=== PATIENT | male | born 1970 | race Caucasian/White ===

== ENCOUNTER 2021-09-26 05:39 | Outpatient (CLI) | payer OTHER ==
[~2021-09-26] VITALS: Ht 177.8 cm; Wt 80.7 kg
[2021-09-26] MEDS ORDERED: OMEP40CA6 PO (13:48)
[2021-10-03] MEDS ORDERED: PANT40TA2 PO (14:27)
[2021-10-03] MEDS ORDERED: SUCR1TAB36 PO (14:27)
[2021-10-03] MEDS ORDERED: HYDR25SU28 RC (15:13)
== END 2021-09-26 15:45 ==
LOC: PREOP 05:39
PROVIDERS: ATTEND Surgery
DX: Z01.818 Encounter for other preprocedural examination (principal); Z12.11 Encounter for screening for malignant neoplasm of colon; R13.10 Dysphagia, unspecified

== ENCOUNTER 2021-10-03 11:30 | Day surgery (SDC) | payer OTHER ==
[~2021-10-03] VITALS: Ht 177.8 cm; Wt 80.7 kg
[~2021-10-03 11:30] MED LIST: OMEP40CA6 PO
[2021-10-03] MEDS ORDERED: LACTATED RINGERS 1,000 ML IV ONE (11:39)
[2021-10-03] MEDS ORDERED: LACTATED RINGERS 1,000 ML IV STA (11:44)
[2021-10-03] MEDS ORDERED: HURRICAINE EXT TUBE (BENZOCAINE) XX PRN (11:45)
[2021-10-03 12:05] VITALS: BP 110/74
--- NOTE | 2021-10-03 12:13 | Progress Note-Pre Operative ---
Pre-Operative Progress Note H&P Reviewed The H&P was reviewed, patient examined and no changes noted. Date Seen by Provider: Oct 03, 2021 Time Seen by Provider: 12:13 Date H&P Reviewed: Oct 03, 2021 Time H&P Reviewed: 12:13 Pre-Operative Diagnosis: Dysphagia, GERD, screening colonoscopy CARYN HARDIN DO Oct 03, 2021 12:13
[2021-10-03] MEDS ORDERED: MIDAZOLAM 2 MG/2 ML (VERSED) VIAL ONE (13:49)
[2021-10-03] MEDS ORDERED: PROPOFOL INJECTION 50 ML IV ONE (13:49)
[2021-10-03] MEDS ORDERED: PANT40TA2 PO (14:27)
[2021-10-03] MEDS ORDERED: SUCR1TAB36 PO (14:27)
--- NOTE | 2021-10-03 14:27 | Discharge Inst-Simple/Standard ---
Discharge Inst-Standard Discharge Medications New, Converted or Re-Newed RX: Transmitted to Pharmacy Patient Instructions/Follow Up Plan of Care/Instructions/FU: 2 weeks aron Activity as Tolerated: Yes Discharge Diet: Regular Diet CARYN HARDIN DO Oct 03, 2021 14:27
[2021-10-03 14:30] VITALS: BP 103/64
--- NOTE | 2021-10-03 14:30 | Progress Note-Post Operative ---
Post-Operative Progess Note Surgeon (s)/Setup Technician (s) Surgeon CARYN HARDIN DO Setup Technician: na Pre-Operative Diagnosis Dysphagia, GERD, screening colonoscopy Post-Operative Diagnosis hiatal hernia, reflux esophagitis, normal colon Procedure & Operative Findings Date of Procedure 10/03/21 Procedure Performed/Findings egd c biopsies, colonoscopy Anesthesia Type per clinical supervisor Estimated Blood Loss Estimated blood loss (mL): none Specimens/Packing Specimens Removed antrum, ge CARYN HARDIN DO Oct 03, 2021 14:30
[2021-10-03 14:35] VITALS: BP_SYST 109; BP_SYST 98; BP_DIAS 65; BP_DIAS 72
--- NOTE | 2021-10-03 14:48 | OPERATIVE REPORT ---
DATE OF SERVICE: 10/03/2021 PREOPERATIVE DIAGNOSES: Dysphagia and screening colonoscopy. POSTOPERATIVE DIAGNOSES: Reflux esophagitis, hiatal hernia, normal colon. PROCEDURE: EGD with biopsies, colonoscopy. SURGEON: Caryn Bland DO ANESTHESIA: Per VETERINARY RECEPTIONIST. ESTIMATED BLOOD LOSS: None. COMPLICATIONS: None. INDICATIONS: The patient is a 51-year-old male with needing screening colonoscopy and has dysphagia symptoms. He understands risks and benefits of procedure and wished to proceed with procedure. Consent was signed in the chart. DESCRIPTION OF PROCEDURE: The patient was taken to the endoscopy suite, placed in left lateral recumbent position. Timeout was performed. Scope was inserted in mouth, down the esophagus, stomach and into the duodenum without difficulty. There were no polyps, masses or ulcerations within the duodenum. Scope was slowly retracted back into the stomach where it was further insufflated. No polyps, masses or ulcerations. Scope was retroflexed noting a hiatal hernia, no other pathology. Scope was returned to its normal position. Biopsy of the antrum was obtained. Scope was slowly retracted back to the distal esophagus, changes of reflux esophagitis present. No polyps, masses or ulcerations. Biopsy of the GE junction was obtained. Scope was slowly retracted back until completely removed. Digital rectal exam was performed noting some internal hemorrhoids. No palpable polyps, masses or ulcerations. Scope was inserted in the rectum and advanced all the way to cecum with minimal difficulty. Prep was adequate. Scope was then slowly retracted back. No polyps, masses or ulcerations within the cecum, ascending, transverse, descending and sigmoid colon. Once in the rectum, scope was attempted to be retroflexed; however, the rectum was too narrow, so multiple insertions and retractions were made noting no other pathology except for internal hemorrhoids. Scope was then slowly retracted back until completely removed. The patient tolerated procedure well without any complications. RECOMMENDATIONS: The patient will stop omeprazole and start 40 mg daily of Protonix. We will also start Carafate 1 gram four times a day. The patient will follow up in the office in two to three weeks to see how he is doing. I would recommend repeat colonoscopy in 10 years unless family history of colon cancer, which then be 5 years. Any issues before that be seen at that time. The patient would like to discuss getting more hemorrhoids fixed. We will consider hemorrhoid energy therapy, but I do not know if this would be quite amenable to this and may need formal hemorrhoidectomy. Job ID: [id number] DocumentID: [id number] Dictated Date: 10/03/2021 14:33:05 Radiologic Technician Date: 10/03/2021 14:46:54 Dictated By: CARYN BLAND DO
--- NOTE | 2021-10-03 14:50 | Anesthesia-General Post-Op ---
MAC Patient Condition Mental Status/LOC: Same as Preop Cardiovascular: Satisfactory Nausea/Vomiting: Absent Respiratory: Satisfactory Pain: Controlled Complications: Absent Post Op Complications Complications None Follow Up Care/Instructions Patient Instructions None needed. Anesthesiology Discharge Order Discharge Order Patient is doing well, no complaints, stable vital signs, no apparent adverse anesthesia problems. No complications reported per nursing. CARMELITA METCALF CRNA Oct 03, 2021 14:50
[2021-10-03 15:05] VITALS: BP 113/77
[2021-10-03] MEDS ORDERED: HYDR25SU28 RC (15:13)
[2021-10-03 15:24] VITALS: BP 113/77
== END 2021-10-03 15:25 ==
LOC: ENDO 11:30
PROVIDERS: ATTEND Surgery
DX: Z12.11 Encounter for screening for malignant neoplasm of colon (principal); K21.00 Gastro-esophageal reflux disease with esophagitis, without bleeding; K44.9 Diaphragmatic hernia without obstruction or gangrene; Z79.899 Other long term (current) drug therapy; Z90.49 Acquired absence of other specified parts of digestive tract; Z90.89 Acquired absence of other organs; Z98.890 Other specified postprocedural states